=== PATIENT | female | born 1995 | race Two or more races ===

== ENCOUNTER 2019-03-02 08:45 | Inpatient (IN) | payer BC ==
[~2019-03-02] VITALS: Ht 172.7 cm; Wt 56.7 kg
[~2019-03-02 08:45] MED LIST: ABILIFY10 MG ORAL; ACETAMINOPHEN500 M5 PO; IBUPROFEN600 MG ORAL; LAMICTAL100 MG ORAL; NIACIN500 M1 PO; PROPRANOLOL HCL20 MG ORAL; PROZAC10 MG ORAL
[2019-03-02 09:00] VITALS: BP 107/72
--- NOTE | 2019-03-02 09:00 | NUR ---
ED Nurse Note: Pt came in due to right forearm infection d/t using needle for heroin. Pt admits on taking heroin and last use was today. Noted right forearm swelling, erythema and foul odor. No open wounds. Pt is AAO x4, ambulatory with non labored breathing. Sinus tach 110 on panel monitor.
--- NOTE | 2019-03-02 09:21 | Emergency Room Report ---
History of Present Illness General Chief Complaint: Skin Rash/Abscess Source: Patient Present Illness HPI Patient presents with right arm infection. She was seen at [facility] 2 days ago and got IV antibiotics. She was not hospitalized. They shona of border of erythema in her arm. She still has complaining about pain. She still also using. She is due to go into rehabilitation tomorrow and says that she will have access to medical care. She grew up in [facility] and therefore her tetanus is up-to-date. She says her last period was a week ago and normal for her. 2 days ago at [facility] she was seen for a heroin overdose. They noted erythema of the arm and she was transferred to our facility and admitted to the hospital. She signed out AGAINST MEDICAL ADVICE. Patient denies hepatitis C and HIV. Patient states her last period was last week and normal for her. She denies any dysuria. No chest pain, palpitations, cough, sore throat. Some constipation. Allergies: Coded Allergies: PENICILLINS (Verified Allergy, Mild, unk, 03/01/19) Patient History Past Medical History: see triage record Social History: Reports: smoking, drug use Social History Narrative has a boyfriend Now: No Reviewed Nursing Documentation: PMH: Agreed; PSxH: Agreed Nursing Documentation-PMH Past Medical History: No History, Except For Review of Systems All Other Systems: negative except mentioned in HPI Physical Exam Vital Signs Date Time Temp Pulse Resp B/P (MAP) Pulse Ox O2 Delivery O2 Flow Rate FiO2 03/02/19 08:50 98.1 129 20 98 Room Air 03/02/19 09:00 107/72 Sp02 EP Interpretation: reviewed, normal General Appearance: well appearing, no apparent distress, GCS 15, non-toxic Head: normocephalic, atraumatic Eyes: bilateral eye normal inspection, bilateral eye PERRL, bilateral eye EOMI ENT: moist mucus membranes Neck: supple Respiratory: lungs clear, normal breath sounds Cardiovascular #1: regular rate, rhythm Cardiovascular #2: 2+ radial (R) Gastrointestinal: normal inspection, normal bowel sounds, non tender, no mass, non-distended Musculoskeletal: back normal, gait/station normal, normal range of motion, swelling - Right antecubital fossa Neurologic: alert, oriented x3, other - Slow in responding, grossly normal Psychiatric: depressed affect Skin: warm/dry, other - Tattoos and erythema antecubital fossa with surrounding erythema some fluctuance Medical Decision Making Diagnostic Impression: Primary Impression: Gas gangrene Additional Impressions: Substance abuse Abscess of right arm UTI (urinary tract infection) Qualified Codes: N30.00 - Acute cystitis without hematuria ER Course Patient presents with right arm infection. This appears to be an abscess at this time. There is also cellulitis there. Evaluation will be with labs EKG and chest x-ray. The patient will receive IV hydration and a dose of vancomycin. There is gas on the soft tissue of the x-ray. Antibiotics are applied and then the patient is admitted for observation. White count is elevated. Initial lactic acid elevated. CMP unremarkable. Slightly elevated CPK. Urine tox screen positive for multiple substances. Discussed with Dr. Beltran and Dr. Rivera. Patient was slurred speech. She's complaining about pain. She received Toradol but still has pain. Small dose of morphine is given and the patient is still observed. Improved lactic acid with treatment. Admit med floor. Laboratory Tests Test 03/02/19 09:25 03/02/19 10:55 White Blood Count 10.9 K/UL (4.8-10.8) H Red Blood Count 4.50 M/UL (4.20-5.40) Hemoglobin 12.5 G/DL (12.0-16.0) Hematocrit 37.5 % (37.0-47.0) Mean Corpuscular Volume 83 FL (80-99) Mean Corpuscular Hemoglobin 27.8 PG (27.0-31.0) Mean Corpuscular Hemoglobin Concent 33.4 G/DL (32.0-36.0) Red Cell Distribution Width 15.1 % (11.6-14.8) H Platelet Count 325 K/UL (150-450) Mean Platelet Volume 7.6 FL (6.5-10.1) Neutrophils (%) (Auto) 60.3 % (45.0-75.0) Lymphocytes (%) (Auto) 27.1 % (20.0-45.0) Monocytes (%) (Auto) 7.6 % (1.0-10.0) Eosinophils (%) (Auto) 4.2 % (0.0-3.0) H Basophils (%) (Auto) 0.8 % (0.0-2.0) Erythrocyte Sedimentation Rate 17 MM/HR (0-20) Prothrombin Time 10.6 SEC (9.30-11.50) Prothrombin Time INR 1.0 (0.9-1.1) PTT 32 SEC (23-33) Urine Color Yellow Urine Appearance Slightly cloudy Urine pH 6 (4.5-8.0) Urine Specific [place] 1.010 (1.005-1.035) Urine Protein Negative (NEGATIVE) Urine Glucose (UA) Negative (NEGATIVE) Urine Ketones Negative (NEGATIVE) Urine Blood Negative (NEGATIVE) Urine Nitrite Negative (NEGATIVE) Urine Bilirubin Negative (NEGATIVE) Urine Urobilinogen 1 MG/DL (0.0-1.0) H Urine Leukocyte Esterase 1+ (NEGATIVE) H Urine RBC 0-2 /HPF (0 - 2) Urine WBC 5-10 /HPF (0 - 2) H Urine Squamous Epithelial Cells Few /LPF (NONE/OCC) Urine Bacteria Few /HPF (NONE) Urine HCG, Qualitative Negative (NEGATIVE) Sodium Level 141 MMOL/L (136-145) Potassium Level 3.5 MMOL/L (3.5-5.1) Chloride Level 105 MMOL/L (98-107) Carbon Dioxide Level 24 MMOL/L (21-32) Anion Gap 12 mmol/L (5-15) Blood Urea Nitrogen 5 mg/dL (7-18) L Creatinine 0.8 MG/DL (0.55-1.30) Estimate Glomerular Filtration Rate > 60 mL/min (>60) Glucose Level 87 MG/DL (74-106) Lactic Acid Level 2.40 mmol/L (0.4-2.0) H 1.80 mmol/L (0.66-2.22) Calcium Level 8.9 MG/DL (8.5-10.1) Total Bilirubin 0.3 MG/DL (0.2-1.0) Aspartate Amino Transferase (AST) 60 U/L (15-37) H Alanine Aminotransferase (ALT) 59 U/L (12-78) Alkaline Phosphatase 145 U/L (46-116) H Total Creatine Kinase 667 U/L (26-308) H Total Protein 7.4 G/DL (6.4-8.2) Albumin 3.6 G/DL (3.4-5.0) Globulin 3.8 g/dL Albumin/Globulin Ratio 0.9 (1.0-2.7) L Urine Opiates Screen Positive (NEGATIVE) H Urine Barbiturates Screen Negative (NEGATIVE) Phencyclidine (PCP) Screen Negative (NEGATIVE) Urine Amphetamines Screen Positive (NEGATIVE) H Urine Benzodiazepines Screen Positive (NEGATIVE) H Urine Cocaine Screen Negative (NEGATIVE) Urine Marijuana (THC) Screen Positive (NEGATIVE) H EKG Diagnostic Results Rate: normal Rhythm: NSR ST Segments: no acute changes - incomplete RBBB Rhythm Strip Diag. Results EP Interpretation: yes Rhythm: NSR, no PVC's, no ectopy Chest X-Ray Diagnostic Results Chest X-Ray Diagnostic Results : Chest X-Ray Ordered: Yes # of Views/Limited/Complete: 1 View Indication: Other EP Interpretation: Yes Interpretation: no consolidation, no effusion, no pneumothorax Impression: No acute disease Electronically Signed by: Electronically signed by Simon Santana MD Other X-Ray Diagnostic Results Other X-Ray Diagnostic Results : X-Ray ordered: R forearm # of Views/Limited Vs Complete: 2 View Indication: Other EP Interpretation: Yes Interpretation: no dislocation, no fractures, other - gas in abscess Impression: Other Electronically Signed by: Electronically signed by Simon Santana MD Last Vital Signs Date Time Temp Pulse Resp B/P (MAP) Pulse Ox O2 Delivery O2 Flow Rate FiO2 03/02/19 14:39 Room Air 03/02/19 14:30 98.4 89 20 89/61 (70) 95 Status: improved Disposition: PLACE IN OBSERVATION Condition: Serious Simon Santana MD March 02, 2019 09:21
[2019-03-02] MEDS ORDERED: Vancomycin 1 GM in NS 275 ML IV ONE (09:30)
[2019-03-02 09:38] LABS: APPEARANCE,URINE SLIGHTLY CLOUDY; BASOPHILS % (AUTO) 0.8 % (0.0-2.0); BILIRUBIN, URINE NEGATIVE (NEGATIVE); COLOR,URINE YELLOW; EOSINOPHILS % (AUTO) 4.2 % (0.0-3.0); GLUCOSE, URINE (UA) NEGATIVE (NEGATIVE); HEMATOCRIT 37.5 % (37.0-47.0); HEMOGLOBIN 12.5 G/DL (12.0-16.0); KETONES,URINE NEGATIVE (NEGATIVE); LEUKOCYTE ESTERASE ,URINE 1+ (NEGATIVE); LYMPHOCYTES % (AUTO) 27.1 % (20.0-45.0); MEAN CORPUSCULAR VOLUME 83 FL (80-99); MONOCYTES % (AUTO) 7.6 % (1.0-10.0); NEUTROPHILS % (AUTO) 60.3 % (45.0-75.0); NITRITE,URINE NEGATIVE (NEGATIVE); PH,URINE 6 (4.5-8.0); PLATELET COUNT 325 K/UL (150-450); PROTEIN,URINE NEGATIVE (NEGATIVE); RED CELL DISTRIBUTION WIDTH 15.1 % (11.6-14.8); UROBILINOGEN,URINE 1 MG/DL (0.0-1.0); WHITE BLOOD COUNT 10.9 K/UL (4.8-10.8)
--- NOTE | 2019-03-02 09:39 | NUR ---
ED Nurse Note: industrial maintenance tech at the bed side.
[2019-03-02 09:57] LABS: ANION GAP 12 mmol/L (5-15); BLOOD UREA NITROGEN 5 mg/dL (7-18); CALCIUM 8.9 MG/DL (8.5-10.1); CARBON DIOXIDE 24 MMOL/L (21-32); CHLORIDE 105 MMOL/L (98-107); CREATININE 0.8 MG/DL (0.55-1.30); POTASSIUM 3.5 MMOL/L (3.5-5.1); SODIUM 141 MMOL/L (136-145)
[2019-03-02] MEDS ORDERED: Cefepime HCl 1 GM in D5W 55 ML IVPB ONE (10:00)
[2019-03-02 10:03] LABS: ALANINE AMINOTRANSFERASE 59 U/L (12-78); ALBUMIN 3.6 G/DL (3.4-5.0); ALBUMIN/GLOBULIN RATIO 0.9 (1.0-2.7); ALKALINE PHOSPHATASE 145 U/L (46-116); ASPARTATE AMINO TRANSFERASE 60 U/L (15-37); BILIRUBIN,TOTAL 0.3 MG/DL (0.2-1.0); CREATINE KINASE 667 U/L (26-308)
--- NOTE | 2019-03-02 10:14 | Diagnostic Imaging Report ---
Indication: Cough Technique: One view of the chest Comparison: 03/01/2019 Findings: Inspiration is suboptimal. Lungs and pleural spaces are clear. Heart size is normal . No significant interim change Impression: No acute process
[2019-03-02] MEDS ORDERED: Ketorolac 30mg Inj IV ONE (10:15)
--- NOTE | 2019-03-02 10:22 | Diagnostic Imaging Report ---
Indications: Pain Technique: Two views of the right forearm Comparison: None Findings: No acute fractures. No dislocations. The joint spaces are preserved. Gas bubbles are seen in the antecubital region Impression: No acute bony trauma Gas bubbles in the antecubital fossa, could indicate penetrating trauma or infection with gas-forming organism Findings discussed by phone with Dr. Santana in the emergency room at the time of interpretation
[2019-03-02] MEDS ORDERED: Morphine Sulfate 2mg/ml Inj(IV/IM USE ONLY) IVP ONE (10:45)
--- NOTE | 2019-03-02 10:54 | NUR ---
ED Nurse Note: Repeat lactic acid sent. Pt is sleeping on her bed with no distress. Blankets provided.
[2019-03-02 11:00] VITALS: BP 100/66
--- NOTE | 2019-03-02 11:55 | NUR ---
HAND-OFF: Report given to Ofelia MAYFIELD.
--- NOTE | 2019-03-02 12:00 | NUR ---
ED Nurse Note: report received from RN Alena, pt vss, resp even and unlabored on RA, resting at this time, pt advised to notify staff if needed assist.
--- NOTE | 2019-03-02 12:45 | NUR ---
ED Nurse Note: verified w/ ermd regarding pt eating, received order, ordered pt's tray.
--- NOTE | 2019-03-02 13:54 | NUR ---
ED Nurse Note: called to give report, per Rosalva statement, receiving RN currently on lunch, will call back in 10 min
[2019-03-02] MEDS ORDERED: Nitroglycerin Subl 0.4mg tab SL PRN (14:00)
[2019-03-02] MEDS ORDERED: Dextrose 50% 25ml Syringe IV PRN (14:00)
[2019-03-02] MEDS ORDERED: Miralax 17gm pkt ORAL PRN (14:00)
[2019-03-02] MEDS ORDERED: Albuterol/Ipratropium 3ml neb HHN PRN (14:00)
[2019-03-02] MEDS ORDERED: Morphine Sulfate 2mg/ml Inj(IV/IM USE ONLY) IVP PRN (14:00)
--- NOTE | 2019-03-02 14:03 | NUR ---
ED Nurse Note: report given to RN Sofiya, will send pt in 10 min per req.
--- NOTE | 2019-03-02 14:20 | NUR ---
ED Nurse Note: pt transferred to [facility], all belongings sent to pt, care endorsed to [facility] staff. pt vss, resp even and unlabored on RA. iv intact and patent.
[2019-03-02 14:30] VITALS: BP 89/61
--- NOTE | 2019-03-02 14:30 | NUR ---
NURSE NOTES: Patient came to unit by adams in stable condition. Alert and oriented x4. No complain of pain or distress at this time. Skin intact and dry. Tender, redness and swelling on Right forearm area. Patient refused to check belonging. Bed lowest position. Call light within reach. Will continue to monitor.
--- NOTE | 2019-03-02 15:37 | History & Physical ---
History and Physical History & Physicial Ken Beltran MD March 02, 2019 15:37
[2019-03-02 16:00] VITALS: BP 112/78
--- NOTE | 2019-03-02 16:39 | Infectious Diseases Prog Note ---
Assessment/Plan Problems: (1) Cellulitis of arm, right Assessment & Plan: continue vancomycin and cefepime , add metronidazole to cover anaerobes (2) Sepsis Assessment & Plan: due to the above , continue wide spectrum antibiotics pending cultures (3) IVDA (intravenous drug abuse) complicating Assessment & Plan: screening for HIV and hepatitis , recommend counseling (4) Abscess Assessment & Plan: with gas bubble in the antecubital fossa , will add metronidazole , recommend surgical eval for possible I&D Subjective Allergies: Coded Allergies: PENICILLINS (Verified Allergy, Mild, unk, 03/01/19) Objective Vital Signs Last 24 Hour Vital Signs Date Time Temp Pulse Resp B/P (MAP) Pulse Ox O2 Delivery O2 Flow Rate FiO2 03/02/19 14:39 Room Air 03/02/19 14:30 98.4 89 20 89/61 (70) 95 03/02/19 14:20 98.4 86 18 116/75 100 Room Air 03/02/19 11:49 98.1 03/02/19 11:00 98.4 89 15 100/66 99 Room Air 03/02/19 10:53 98.1 03/02/19 09:00 98.1 110 14 107/72 98 Room Air 03/02/19 08:50 98.1 129 20 98 Room Air Height (Feet): 5 Height (Inches): 8.00 Weight (Pounds): 125 Laboratory Tests Test 03/02/19 09:25 03/02/19 10:55 White Blood Count 10.9 K/UL (4.8-10.8) H Red Blood Count 4.50 M/UL (4.20-5.40) Hemoglobin 12.5 G/DL (12.0-16.0) Hematocrit 37.5 % (37.0-47.0) Mean Corpuscular Volume 83 FL (80-99) Mean Corpuscular Hemoglobin 27.8 PG (27.0-31.0) Mean Corpuscular Hemoglobin Concent 33.4 G/DL (32.0-36.0) Red Cell Distribution Width 15.1 % (11.6-14.8) H Platelet Count 325 K/UL (150-450) Mean Platelet Volume 7.6 FL (6.5-10.1) Neutrophils (%) (Auto) 60.3 % (45.0-75.0) Lymphocytes (%) (Auto) 27.1 % (20.0-45.0) Monocytes (%) (Auto) 7.6 % (1.0-10.0) Eosinophils (%) (Auto) 4.2 % (0.0-3.0) H Basophils (%) (Auto) 0.8 % (0.0-2.0) Erythrocyte Sedimentation Rate 17 MM/HR (0-20) Prothrombin Time 10.6 SEC (9.30-11.50) Prothromb Time International Ratio 1.0 (0.9-1.1) Activated Partial Thromboplast Time 32 SEC (23-33) Urine Color Yellow Urine Appearance Slightly cloudy Urine pH 6 (4.5-8.0) Urine Specific [place] 1.010 (1.005-1.035) Urine Protein Negative (NEGATIVE) Urine Glucose (UA) Negative (NEGATIVE) Urine Ketones Negative (NEGATIVE) Urine Blood Negative (NEGATIVE) Urine Nitrite Negative (NEGATIVE) Urine Bilirubin Negative (NEGATIVE) Urine Urobilinogen 1 MG/DL (0.0-1.0) H Urine Leukocyte Esterase 1+ (NEGATIVE) H Urine RBC 0-2 /HPF (0 - 2) Urine WBC 5-10 /HPF (0 - 2) H Urine Squamous Epithelial Cells Few /LPF (NONE/OCC) Urine Bacteria Few /HPF (NONE) Urine HCG, Qualitative Negative (NEGATIVE) Sodium Level 141 MMOL/L (136-145) Potassium Level 3.5 MMOL/L (3.5-5.1) Chloride Level 105 MMOL/L (98-107) Carbon Dioxide Level 24 MMOL/L (21-32) Anion Gap 12 mmol/L (5-15) Blood Urea Nitrogen 5 mg/dL (7-18) L Creatinine 0.8 MG/DL (0.55-1.30) Estimat Glomerular Filtration Rate > 60 mL/min (>60) Glucose Level 87 MG/DL (74-106) Lactic Acid Level 2.40 mmol/L (0.4-2.0) H 1.80 mmol/L (0.66-2.22) Calcium Level 8.9 MG/DL (8.5-10.1) Total Bilirubin 0.3 MG/DL (0.2-1.0) Aspartate Amino Transf (AST/SGOT) 60 U/L (15-37) H Alanine Aminotransferase (ALT/SGPT) 59 U/L (12-78) Alkaline Phosphatase 145 U/L (46-116) H Total Creatine Kinase 667 U/L (26-308) H Total Protein 7.4 G/DL (6.4-8.2) Albumin 3.6 G/DL (3.4-5.0) Globulin 3.8 g/dL Albumin/Globulin Ratio 0.9 (1.0-2.7) L Urine Opiates Screen Positive (NEGATIVE) H Urine Barbiturates Screen Negative (NEGATIVE) Phencyclidine (PCP) Screen Negative (NEGATIVE) Urine Amphetamines Screen Positive (NEGATIVE) H Urine Benzodiazepines Screen Positive (NEGATIVE) H Urine Cocaine Screen Negative (NEGATIVE) Urine Marijuana (THC) Screen Positive (NEGATIVE) H Current Medications Medications (Trade) Dose Ordered Sig/Juan Route PRN Reason Start Time Stop Time Status Last Admin Dose Admin Acetaminophen (Tylenol) 650 mg Q4H PRN ORAL fever 03/02/19 14:00 04/01/19 13:59 Albuterol/ Ipratropium (Albuterol/ Ipratropium) 3 ml Q4H PRN HHN Shortness of Breath 03/02/19 14:00 03/07/19 13:59 Aripiprazole (Abilify) 10 mg BEDTIME ORAL 03/02/19 21:00 04/01/19 20:59 Cefepime HCl 2 gm/ Dextrose 110 ml @ 220 mls/hr EVERY 12 HOURS IV 03/02/19 21:00 03/09/19 20:59 Dextrose (Dextrose 50%) 25 ml Q30M PRN IV Hypoglycemia 03/02/19 14:00 04/01/19 13:57 Dextrose (Dextrose 50%) 50 ml Q30M PRN IV hypoglycemia 03/02/19 14:00 04/01/19 13:59 Dextrose/ Electrolytes 1,000 ml @ 75 mls/hr [id number] IV 03/02/19 17:00 04/01/19 16:59 Fluoxetine HCl (PROzac) 10 mg DAILY ORAL 03/03/19 09:00 04/02/19 08:59 Heparin Sodium (Porcine) (Heparin 5000 units/ml) 5,000 units EVERY 12 HOURS SUBQ 03/02/19 21:00 04/01/19 20:59 Lamotrigine (LaMICtal) 200 mg Q12HR ORAL 03/02/19 21:00 04/01/19 20:59 Morphine Sulfate (Morphine Sulfate) 2 mg Q4H PRN IVP Moderate Pain (Pain Scale 4-6) 03/02/19 14:00 03/09/19 13:59 Nitroglycerin (Ntg) 0.4 mg Q5M PRN SL Prn Chest Pain 03/02/19 14:00 04/01/19 13:59 Ondansetron HCl (Zofran) 4 mg Q6H PRN IVP Nausea & Vomiting 03/02/19 14:00 04/01/19 13:59 Polyethylene Glycol (Miralax) 17 gm DAILYPRN PRN ORAL Constipation 03/02/19 14:00 04/01/19 13:59 Temazepam (Restoril) 15 mg HSPRN PRN ORAL Insomnia 03/02/19 14:00 03/09/19 13:59 Vancomycin HCl (Vanco rx to dose) 1 ea DAILY PRN MISC PER RX PROTOCOL 03/02/19 14:30 04/01/19 14:29 Vancomycin HCl 1 gm/Dextrose 275 ml @ 183.3 mls/ hr Q12HR@1000,2200 IVPB 03/02/19 22:00 03/07/19 21:59 Lee Flores M.D. March 02, 2019 16:39
[2019-03-02] MEDS ORDERED: D5 1/2NS w/KCl 20mEq 1,000 ML IV SCH (17:00)
--- NOTE | 2019-03-02 17:00 | Consultation ---
DATE OF CONSULTATION: 03/02/2019 CONSULTING PHYSICIAN: Carl Rivera M.D. REQUESTING PHYSICIAN: Ken Beltran M.D. REASON FOR CONSULTATION: Infection of the right elbow. HISTORY OF PRESENT ILLNESS: This is a 23-year-old female, who presented to emergency room complaining of pain and erythema at the medial side of the right elbow. She claimed that she has had it for 3 days but she denies any fever. She complains of pain with movement. The record shows that 2 days ago, she has been seen at [facility] for heroin overdose and have noticed erythema. They transferred the patient to our facility but the patient signed out AMA but again this morning she has returned for pain and the erythema. She is a known drug abuser. She claims that she has been injecting for 3 months. PAST MEDICAL HISTORY: She claims to be allergic to penicillin. She denies asthma, diabetes, hypertension, cardiac or renal diseases. SURGERIES: Cholecystectomy and breast surgery. MEDICATIONS: Please see the medicine reconciliation form but the main medication is Prozac. SOCIAL HISTORY: The patient is a 23-year-old female, who is single without children. Unemployed. She smokes few cigarettes a day. Denies drinking but she has a history of IV drug abuse. REVIEW OF SYSTEMS: Unobtainable as the patient is at the present time. PHYSICAL EXAMINATION: GENERAL: The patient appeared to be a well-developed and well-nourished, 23-year-old female, sleepy. HEENT: Head is normocephalic and atraumatic. Eyes, pupils are constricted. Mouth is clear. NECK: There is no palpable thyromegaly or adenopathy. CHEST: Clear to auscultation and percussion. HEART: No gallop or murmur. ABDOMEN: Soft, flat, nontender. There is no palpable organomegaly. EXTREMITIES: Right arm on the medial side of the elbow, there is an area of erythema and induration. This is about 2.5 to 3 inches in diameter but I am unable to feel fluctuation and I did not feel any crepitus although the x-ray had shown air bubbles in this area. LABORATORY AND DIAGNOSTIC DATA: CBC is basically within normal limits. Chemistry is normal. She is positive for opiates, amphetamine, and marijuana. ASSESSMENT: Cellulitis of the right arm, rule out abscess. RECOMMENDATIONS: At this time she required to be on IV antibiotics and I took the liberty of ordering ultrasound of the elbow to rule out the pus collection. If there is any abscess, she will require drainage. Otherwise she require to be on the treatment with IV antibiotics. Carl Rivera M.D. DR: Rachelle JOB#: [id number] CC:
--- NOTE | 2019-03-02 18:42 | NUR ---
CHARGE NURSE NOTES: ultrasound of the right arm done at bedside. Per tech, pt has an abscess measuring 2.3 x 1.3 x 1.7, relayed to Dr Truong with telephone orders obtained and noted. technicians and trades workers called back to do the localization. she will come back to do it.
--- NOTE | 2019-03-02 19:30 | NUR ---
HAND-OFF: Report given to Carlitos MAYFIELD. Patient in stable condition.
--- NOTE | 2019-03-02 20:00 | NUR ---
NURSE NOTES: Security notified RN that patient had used the back elevators to leave hospital floor to go and smoke. RN approached patient and explained the hospital is a smoke free facility and that she cannot smoke on premises. Patient began to get upset and told RN that she wanted to leave the hospital. RN explained the risks of leaving the hospital with upcoming procedure. Patient is aware and understands and is choosing to leave AMA.
--- NOTE | 2019-03-02 20:15 | NUR ---
NURSE NOTES: Patient signed AMA. IV removed.
[2019-03-02] MEDS ORDERED: ARIPiprazole 10mg tab ORAL SCH (21:00)
[2019-03-02] MEDS ORDERED: Cefepime HCl 2 GM in D5W 110 ML IV SCH (21:00)
[2019-03-02] MEDS ORDERED: Heparin 5000 units/ml inj SUBQ SCH (21:00)
[2019-03-02] MEDS ORDERED: Vancomycin 1 GM in D5W 275 ML IVPB SCH (22:00)
--- NOTE | 2019-03-02 22:15 | History and Physical Report ---
DATE OF ADMISSION: 03/02/2019 CHIEF COMPLAINT: Right arm redness. HISTORY OF PRESENT ILLNESS: This is a 23-year-old female with past medical history significant for history of intravenous drug abuse in the rehabilitation unit as well as bipolar disorder, who was presented to the hospital initially to [facility] 2 days ago complaining about right arm redness. The patient received intravenous antibiotics, however, was not hospitalized and subsequently the patient left the hospital and she continued using intravenous drug abuse injection to the upper extremity and now, she presented to the hospital complaining about worsening of the redness and tender around the antecubital area on the right hand, right arm, right upper extremity, and subsequently, the patient was admitted to the hospital for right upper extremity cellulitis, possible abscess in the intravenous drug abuse patient. PAST MEDICAL HISTORY SURGERY: Significant for bipolar disorder, history of intravenous drug abuse, breast reduction in 2009, and cholecystectomy in 2013. MEDICATIONS: Medications at home significant for Lamictal 200 mg twice a day, Prozac 20 mg daily, Abilify 30 mg daily, ibuprofen 600 mg q.6 hours p.r.n., niacin 500 mg daily, propranolol 20 mg 3 times a day, acetaminophen 500 mg q.6 hours p.r.n. ALLERGIES: Penicillin with rash. SOCIAL HISTORY: The patient has a history of drug abuse. Her last abuse was yesterday. She denies any alcohol abuse. The patient has history of smoking, 3 cigarettes a day. FAMILY HISTORY: Noncontributory. REVIEW OF SYSTEM: Mostly as above. Denies any dysuria, frequency, or hematuria. Denies any hemoptysis or hematochezia. Denies any suicidal or homicidal ideation. Denies any loss of consciousness. Denies any fall. Complained about the tenderness in the right upper extremity. Denies any loss of consciousness. Denies any history of hepatitis C or human immunodeficiency virus positive. PHYSICAL EXAMINATION: VITAL SIGNS: On admission, temperature of 98.1, pulse is 129, respirations 20, and blood pressure 107/72. GENERAL: The patient is awake and responsive, in no acute distress. HEAD AND NECK: Pupils are reactive to light. Extraocular movements intact. Neck was supple. No JVD. LUNGS: Good air entry. No wheezing or rales. HEART: Reveals S1 and S2. Regular rhythm. No gallops. ABDOMEN: Soft, nondistended, an d nontender. Positive bowel sounds. EXTREMITIES: No cyanosis, clubbing, or edema. Right upper extremity has redness around the antecubital area, tender to touch, endurable. No pussy discharge was identified. SKIN: Bilateral upper extremity tattoo was noted. LABORATORY DATA: On admission from the ER, WBC of 10, hemoglobin of 12, hematocrit of 37, and platelets is 325,000. Sodium 141, potassium 3.5, chloride 105, bicarb 24, BUN 5, and creatinine 0.8. Lactic acid initially is 2.4. Repeat was 1.8. AST of 60, ALT of 59, and alkaline phosphatase 145. Total CK level is 667. PT of 10, INR 1.0, and PTT of 32. Urinalysis, +1 urine bilirubin and +1 leukocytes. Urine drug screen, positive for opioids, amphetamine, benzos, as well as marijuana. The patient had an x-ray of the forearm. Noted the patient has a gas bubble in the antecubital fossa, could indicate a penetrating trauma or infection with a gas forming organisms. No acute bony trauma. Chest x-ray normal, no acute process. ASSESSMENT: 1. Right upper extremity antecubital abscess infection, cellulitis, possible abscess. 2. History of intravenous drug abuse. 3. Bipolar disorder. PLAN: 1. Admit the patient to medical floor. 2. We will follow up with Dr. Guerrero, Pulmonary Critical Care and Dr. Tanner from Psychiatry and follow up with Dr. Carreon from Infectious Diseases. 3. Broad-spectrum antibiotics with cefepime, Flagyl, and vancomycin. 4. Follow up with the laboratory in the morning as well as cultures. 5. Code status Full Code. 6. DVT prophylaxis with heparin subcutaneous. 7. Continue on IV hydration and discussed with the patient extensively with regard to the plan of care. Dot Mac JOB#: [id number] CC:
--- NOTE | 2019-03-03 01:00 | Consultation ---
DATE OF CONSULTATION: 03/02/2019 CONSULTING PHYSICIAN: Dionicio Tanner M.D. HISTORY OF PRESENT ILLNESS: This is a 23-year-old female with a history of substance use disorder who was admitted to the hospital due to right arm cellulitis. The patient apparently left last night AMA. She returned to the hospital emergency room altered and the patient was using heroin IV. During the evaluation, the patient stated that she has used IV heroin after she left the hospital. The patient does not endorse any suicidal or homicidal ideation. The patient received IV antibiotics for the cellulitis. PAST PSYCHIATRIC HISTORY: Anxiety, depression. PAST MEDICAL HISTORY: Includes asthma, diabetes, hypertension, cardiac and renal disease. ALLERGIES: Includes penicillin. SUBSTANCE ABUSE HISTORY: Significant for illicit drug use. She is an IV drug user. MENTAL STATUS EXAMINATION: Alert and oriented x3. Cooperative with examination. Well developed, well nourished. In no acute distress. Mood was neutral. Affect was constricted, congruent with mood. Thought process is concrete. Thought content, no suicidal or homicidal ideations. ASSESSMENT: [place] I Polysubstance dependence. [place] II Deferred. [place] III As above. [place] IV Moderate. [place] V 20. PLAN: 1. The patient is not an imminent danger to self or others. The patient has capacity to leave AMA. The patient understands the risks versus benefits of leaving the hospital. 2. Discussed the case with the charge nurse. Dionicio Tanner M.D. DR: BIA JOB#: [id number] CC:
[2019-03-03] MEDS ORDERED: FLUoxetine 10mg cap ORAL SCH (09:00)
--- NOTE | 2019-03-03 15:48 | Consultation ---
Consult Note Consult Note CONSULTING PHYSICIAN: Lee Flores M.D. REQUESTING PHYSICIAN: Pat Guerrero M.D. REASON FOR CONSULTATION: Right arm cellulitis with redness and swelling in the antecubital area with gas in intravenous drug abuser and possible sepsis. Recommendation for antibiotics treatment. HISTORY OF PRESENT ILLNESS: The patient is a 23-year-old female with past medical history of depression and intravenous drug abuse, who was living in a sober home was evaluated at [facility] for right arm redness and swelling. It happened after she was injecting heroin in her right arm, which she has been using for almost a month ago. The patient shortly after her initial evaluation in the emergency room, received intravenous antibiotics and was transferred subsequently to [facility] for further evaluation and management. The patient denied any pain or decreased range of motion in the right elbow. She does have redness and swelling in the right arm medial aspect extending to the elbow. No fever or chills. No headache or blurry vision. No neck stiffness or pain. No back pain. No abdominal pain, nausea, vomiting, or diarrhea. The patient's workup at [place] revealed leukocytosis with 14,000, which is concerning for sepsis. So, she was started on vancomycin and Levaquin and admitted to the hospital for further evaluation and management . patient left the hospital later AMA, and she returned next day after she overdosed with heroin again . X ray of the right arm showed gas , so she was started on vancomycin and cefepime empirically and an Infectious Disease consultation was requested for antibiotics treatment and further management. REVIEW OF SYSTEMS: A 14-point of system reviewed were all negative apart from the one I mentioned above in my History and Physical. PAST MEDICAL HISTORY: Significant for depression and intravenous drug abuse. PAST SURGICAL HISTORY: Negative. MEDICATIONS: She is currently on vancomycin and Levaquin. For the rest of her medications, please refer to MAR. ALLERGIES: She is allergic to penicillin in her childhood with rash only. SOCIAL HISTORY: The patient lives at a sober home. Unemployed at this point. She used drugs mainly heroin injection, which she has been using for the last month. Denied using any tobacco or alcohol. FAMILY HISTORY: Noncontributory to her current problem. LABORATORY AND DIAGNOSTIC DATA: Labs showed white count of 10.9, hemoglobin of 12.5, and platelet count of 325. BUN of 5 and creatinine of 0.8. AST of 60, ALT of 59, and alkaline phosphatase of 145. MICROBIOLOGY: Screening for human immunodeficiency virus negative. IMAGING: Chest x-ray showed no acute finding. right arm X ray showed gas and soft tissue swelling PHYSICAL EXAMINATION: VITAL SIGNS: Temp 98.4, Pulse 89, respiration 20, blood pressure 89/61, sat 95% . GENERAL: A young female, lying in bed, awake, alert, oriented x3, not in acute distress. HEENT: Normocephalic and atraumatic. Pupils are reactive to light equally. Moist oral mucosa. No exudate or thrush. NECK: Supple. No lymphadenopathy. CARDIOVASCULAR: Regular rate and rhythm. No murmur or gallop. LUNGS: Clear bilaterally. No wheezing or rhonchi. Normal breathing effort. ABDOMEN: Soft, nontender, and nondistended. Normal bowel sounds. No hepatosplenomegaly. No ascites. EXTREMITIES: She has right arm edema and redness. Normal range of motion in the right elbow. No local tenderness. Lower extremity, no edema or cyanosis. No clubbing. SKIN: Red and erythematous on the right arm, but no rash and no ulceration. Assessment/Plan ASSESSMENT AND RECOMMENDATIONS: 1. Right arm cellulitis with gas in intravenous drug abuser. abscess VS phlegmon. We will continue vancomycin and cefepime empiric coverage for now and add metronidazole send blood culture to rule out bacteremia. Advised the patient to avoid injecting drugs and to keep arm elevated all the time. 2. Possible sepsis with hypotension and leukocytosis, suspect due to the above. We will send blood culture x2. Continue vancomycin and cefepime empiric coverage pending blood culture. 3. Intravenous drug abuse. The patient was counseled. Recommend rehabilitation. screening for hepatitis is pending . 4. Depression. Recommend psych evaluation and rehabilitation. Thank you for the consult. Infectious Disease will continue to follow. Please feel free to call with any question. Lee Flores M.D. March 03, 2019 15:48
--- NOTE | 2019-03-05 09:18 | Discharge Summary ---
Discharge Summary Discharge Summary _ DATE OF ADMISSION: 03/02/2019 DATE OF DISCHARGE: 03/02/2019 Patient left AGAINST MEDICAL ADVICE REASON FOR ADMISSION: 23 years old female with no past medical history of intravenous drug abuse, bipolar disorder, initially presented to [facility] on 02/28/2019 , complaining of right arm tenderness. Patient received intravenous antibiotic and Narcan, and was transferred to [facility] for further management. However after one day at [facility], patient signed AGAINST MEDICAL ADVICE. She presented this time to emergency room complaining of worsening redness and tenderness around her antecubital area on the right forearm. X-ray of the right forearm revealed no acute bony trauma. Gas bubbles in the antecubital fossa noted, possibly indicative of penetrating trauma or infection with gas-forming organism. Chest x-ray revealed no acute cardiopulmonary pathology. Stable electrolytes. AST 60. Lactic acid 2.4 Urine toxicology screen was positive for opiates, amphetamines, benzodiazepine, and marijuana. Mild leukocytosis, stable hemoglobin and hematocrit. No fevers . Urinalysis revealed pyuria but only few bacteria. Urine test was negative. CK slightly elevated -667. Patient was hypotensive. Patient subsequently was admitted to the medical surgical floor for further management. CONSULTANTS: ID specialist surgery Dr. Rivera psychiatrist [facility]SE: Patient admitted to medical surgical floor. Patient started on broad-spectrum antibiotic and intravenous hydration. ID specialist follow. DVT prophylaxis provided. Blood cultures drawn on 03/01 at the time of this dictation preliminary negative. Initial lactic acid 2.4, repeated 1.8. Surgeon seen and evaluated patient, and recommended continue IV antibiotic. Surgeon ordered ultrasound of the elbow to rule out pus collection if there would be any abscess that would require drainage as per surgeon Psychiatrist seen and evaluated patient. Per psychiatrist , patient was not at imminent danger to self or others. Patient had capacity to leave AGAINST MEDICAL ADVICE. Patient was counseled on abstinence from illicit street drugs and continue with outpatient rehabilitation program. Patient decided to sign AGAINST MEDICAL ADVICE. The risks and consequences of signing AGAINST MEDICAL ADVICE were discussed with patient in detail. Patient verbalized understanding, nevertheless signed AMA form and left. FINAL DIAGNOSES: Right upper extremity antecubital cellulitis with gas in intravenous drug abuser. Abscess versus phlegmon Possible sepsis with hypotension and leukocytosis Intravenous drug abuser Depression Polysubstance dependency I have been assigned to dictate discharge summary for this account. I was not involved in the patient's management. Hanna Jain NP March 05, 2019 09:18
--- NOTE | 2019-03-05 12:06 | Diagnostic Imaging Report ---
Indication:Pain and swelling Technique: Grayscale and duplex Doppler imaging of the right forearm performed. Comparison: None Findings: The area of concern notable for an ill-defined approximately 2 x1 cm area of hypoechogenicity. This could represent phlegmon or developing abscess versus hematoma in the appropriate clinical circumstance. Please correlate clinically. Increased vascularity also noted probably due to inflammation. IMPRESSION: Phlegmon/developing abscess versus hematoma in the area of clinical concern
== END 2019-03-02 20:53 | disposition left against medical advice (07) | DRG 871 ==
LOC: EMR 09:30 → 3E 10:05 → EDBEDREQ 12:41
DX: A41.9 Sepsis, unspecified organism (principal); A48.0 Gas gangrene; L03.113 Cellulitis of right upper limb; L02.413 Cutaneous abscess of right upper limb; F19.20 Other psychoactive substance dependence, uncomplicated; F32.9 Major depressive disorder, single episode, unspecified; F31.9 Bipolar disorder, unspecified; Z88.0 Allergy status to penicillin; Z87.891 Personal history of nicotine dependence
CPT/HCPCS: 36415; 71045; 80053; 80307; 81003; 81025; 82550; 83605; 85025; 85610; 85651; 85730; 87081; 93005; 93970; 96361; 96365; 96367; 96368; 96375; 99285